=== PATIENT | female | born 1940 | race Caucasian/White ===

== ENCOUNTER → 2019-11-02 18:10 | Outpatient (CLI) | payer MEDICARE, SELFPAY ==
--- NOTE | ~2019-11-02 | MM_ITS ---
EXAMINATION: MM screening alejo BI w janet HISTORY: Screening mammogram TECHNIQUE: Craniocaudal and mediolateral oblique 3-D tomosynthesis images were obtained and synthetic 2-D images were generated. CAD analysis was submitted and interpreted. COMPARISON: 09/06/2018, 07/30/2017, 07/17/2016 bilateral digital screening mammogram examinations BREAST PARENCHYMAL COMPOSITION: There are scattered areas of fibroglandular density. FINDINGS: There is no evidence of suspicious mass, calcification, or architectural distortion to sugg est malignancy in either breast. There has been no suspicious interval change. IMPRESSION: 1. No mammographic evidence of malignancy. 2. Recommend routine screening mammography in one year. BI-RADS Category 1: Negative Reviewed, dictated and finalized at location A. D BONER
== END ==
PROVIDERS: PCP Family Medicine Adolescent Medicine; Visit Provider Family Medicine Adolescent Medicine
DX: Z12.31 Encounter for screening mammogram for malignant neoplasm of breast (principal)
CPT/HCPCS: 77063; 77067

== ENCOUNTER → 2020-12-24 11:40 | Outpatient (CLI) | payer MEDICARE, SELFPAY ==
--- NOTE | ~2020-12-24 | MM_ITS ---
EXAMINATION: MM screening alejo BI w janet HISTORY: Screening mammogram TECHNIQUE: Craniocaudal and mediolateral oblique 3-D tomosynthesis images were obtained and synthetic 2-D images were generated. CAD analysis was submitted and interpreted. COMPARISON: 11/02/2019, 09/06/2018, 07/30/2017 bilateral digital screening mammogram examinations BREAST PARENCHYMAL COMPOSITION: There are scattered areas of fibroglandular density. FINDINGS: There is no evidence of suspicious mass, calcification, or architectural distortion to sugg est malignancy in either breast. There has been no suspicious interval change. IMPRESSION: 1. No mammographic evidence of malignancy. 2. Recommend routine screening mammography in one year. BI-RADS Category 1: Negative Reviewed, dictated and finalized at location A.
== END ==
PROVIDERS: PCP Family Medicine Adolescent Medicine; Visit Provider Family Medicine Adolescent Medicine
DX: Z12.31 Encounter for screening mammogram for malignant neoplasm of breast (principal)
CPT/HCPCS: 77063; 77067

== ENCOUNTER 2021-01-20 12:01 | Emergency (ER) | payer MEDICARE, SELFPAY ==
--- NOTE | 2021-01-20 12:11 | ED.LOWEXIN ---
HPI - Extremity Injury (Lower) General Chief Complaint: Extremity Injury, Lower Stated Complaint: Left Leg Pain Time Seen by Provider: 01/20/21 12:11 Source: patient and RN notes reviewed Mode of arrival: ambulatory Limitations: no limitations History of Present Illness HPI Narrative: 80-year-old female presents to the [facility] with complaints of a wound to the lower left leg. States that she fell 4 weeks ago in her garage and did not seek treatment at that time. At that time the wound was small. states that over the last few days the area started to swell, turn red and drain yellow to reddish clear fluid. Unknown last tDap. Patient states that her concern if for infection and that the wound is not healing. Related Data Home Medications Medication Instructions Recorded Confirmed carvedilol 25 mg PO DAILY 01/20/21 01/20/21 furosemide 40 mg PO DAILY 01/20/21 01/20/21 gabapentin 300 mg PO DAILY 01/20/21 01/20/21 mirabegron [Myrbetriq] 25 mg PO DAILY 01/20/21 01/20/21 naproxen 500 mg PO DIRECTED 01/20/21 01/20/21 omeprazole 40 mg PO DAILY 01/20/21 01/20/21 Allergies Allergy/AdvReac Type Severity Reaction Status Date / Time No Known Allergies Allergy Unverified 03/03/19 08:25 Review of Systems Review of Systems: All systems reviewed & are unremarkable except as noted in HPI and below Constitutional: Constitutional: Reports no additional constitutional complaints, Denies chills and Denies fever(s) Cardiovascular: Cardiovascular: Reports no additional cardiovascular complaints and Denies chest pain Respiratory: Respiratory: Reports no additional respiratory complaints, Denies cough, Denies dyspnea and Denies wheezing Musculoskeletal: Musculoskeletal: Reports as per HPI Comments: lower leg pain with swelling Integumentary/Breasts: Skin/Breast: Reports as per HPI Comments: wound to the anterior left lower leg. Neurologic: Reports system reviewed and no additional complaints, except as documented Psychiatric: Psychiatric: Reports no additional psychiatric complaints PMFSH Comments At the time of my signature, I reviewed and agree with the nursing past medical, surgical, social, and family history. There is no relevant family history pertinent to the patient complaint. Exam Const: General: healthy appearing, no acute distress and alert Nutritional Appearance: well nourished Orientation/consciousness: patient oriented x3 Limitations: no limitations HENMT: Head: normal to inspection Neck: Neck: normal visual inspection Chest: Chest palpation & inspection: normal inspection of the chest Resp: Effort & Inspection: normal respiratory effort and no use of accessory muscles Auscultation: clear to auscultation bilaterally, no crackles, no rales, no rhonchi and no wheezes Cardio: Rate: regular rate Rhythm: regular rhythm Back/Spine/Pelvis: Back: no CVA tenderness Skin: Wounds: wounds noted ulceration left anterior lower leg drainage serosanguinous, open and with surrounding erythema (Not circumferential); not malodorous Neuro: General: patient oriented x3, moves all extremities and no focal motor deficits Speech: normal speech Gait exam (Neuro): Normal gait present Extrem: General: edema (Trace left lower distal to wound, not circumferential) Psych: Appearance: grossly normal and well kempt Mental Status: mental status grossly normal Affect: normal affect Attitude: cooperative Thought content: Yes Normal thought content present Course Vital Signs Vital signs: Vital Signs Temperature 96.8 F L 01/20/21 12:14 Pulse Rate 62 01/20/21 12:14 Respiratory Rate 20 01/20/21 12:14 Blood Pressure 157/86 H 01/20/21 12:14 Pulse Oximetry 95 01/20/21 12:14 Temperature 96.8 F L 01/20/21 12:14 Pulse Rate 62 01/20/21 12:14 Respiratory Rate 20 01/20/21 12:14 Blood Pressure 157/86 H 01/20/21 12:14 Pulse Oximetry 95 01/20/21 12:14 Reviewed MDM - Extremity Injury (Lower) MDM Narrati
[2021-01-20 12:14] VITALS: BP 157/86; PULSE 62; RESP 20; TEMP 36; O2SAT 95
[2021-01-20] MEDS: TETANUS,DIPHTHERIA,AC PERTUSSIS ADULT (0.5 ML) BOOSTRIX IM (12:40)
== END 2021-01-20 12:53 | disposition home or self-care (01) ==
PROVIDERS: Emergency Provider Nurse Practitioner; PCP Family Medicine Adolescent Medicine
DX: L03.116 Cellulitis of left lower limb (principal); S81.802A Unspecified open wound, left lower leg, initial encounter; W19.XXXA Unspecified fall, initial encounter; Z23 Encounter for immunization; E78.00 Pure hypercholesterolemia, unspecified; I10 Essential (primary) hypertension; K21.9 Gastro-esophageal reflux disease without esophagitis
CPT/HCPCS: 90471; 90715; 99213; G0463

== ENCOUNTER 2021-11-10 17:51 | Emergency (ER) | payer MEDICARE, SELFPAY ==
--- NOTE | ~2021-11-10 | XR_ITS ---
XR knee LT min 4V DATE: 11/10/2021 18:35 INDICATION: Fall. Left knee pain, swelling TECHNIQUE: 4 views including crosstable lateral COMPARISON: 01/25/2019 left knee FINDINGS: There is diffuse osteopenia. There is polyarticular osteoarthritis, particularly severe at the medial compartment with severe loss of joint space. There is periarticular spurring at all 3 compartments. There is prominent suprapatellar knee joint effusion.. There is a subtle transverse linear lucency overlying the mid to upper patella, extending to the pineda cular surface; nondisplaced patellar fracture is not excluded. Consider CT or MR evaluation. No other fracture or dislocation or any periosteal reaction or bone destruction is noted. IMPRESSION: Prominent suprapatellar knee joint effusion Osteopenia Tricompartment osteophytes, particular severe at the medial compartment Cannot exclude or confirm nondisplaced patellar fracture; consider CT or MR evaluation of the left kn ee Reviewed, dictated and finalized at location A. IMPRESSION: Prominent suprapatellar knee joint effusion Osteopenia Tricompartment osteophytes, particular severe at the medial compartment Cannot exclude or confirm nondisplaced patellar fracture; consider CT or MR chuck luation of the left knee
--- NOTE | ~2021-11-10 | XR_ITS ---
XR hand RT min 3V DATE: 11/10/2021 18:36 INDICATION: Fall. Right hand pain, bruising of third digit TECHNIQUE: 3 views COMPARISON: None FINDINGS: There is a minimally displaced fracture of the base of the proximal phalanx of the fifth di git. There is severe polyarticular osteoarthritis, particularly severe at the triscaphe, first carpometaca rpal and multiple interphalangeal joints. Diffuse osteopenia. IMPRESSION: Minimally displaced fracture of base of proximal phalanx of fifth digit Severe articular osteoarthritis Osteopenia Reviewed, dictated and finalized at location A. IMPRESSION: Minimally displaced fracture of base of proximal phalanx of fifth d igit Severe articular osteoarthritis Osteopenia
[2021-11-10 18:06] VITALS: BP 160/105; PULSE 72; RESP 18; TEMP 37.2; O2SAT 95
--- NOTE | 2021-11-10 18:14 | ED.GENADULT ---
HPI - General Adult General Chief complaint: Fall Stated complaint: Right hand and Left Knee Pain Time Seen by Provider: 11/10/21 18:14 Source: patient Mode of arrival: ambulatory Limitations: no limitations History of Present Illness HPI narrative: 81-year-old female presented for complaint of pain to right hand and left knee after fall about 4 hours ago. She did not hit her head or lose consciousness. She landed on the left knee and use her right hand to break her fall. Endorses the right hand started to turn black and blue at the pinky finger and now has swelling with pain and limited range of motion. Pain to left knee, worse when standing and walking. Denies numbness, tingling, weakness of extremities. She has taken Tylenol about 3 hours ago. Related Data Home Medications Medication Instructions Recorded Confirmed carvedilol 25 mg PO DAILY 01/20/21 11/10/21 furosemide 40 mg PO DAILY 01/20/21 11/10/21 gabapentin 300 mg PO DAILY 01/20/21 11/10/21 mirabegron [Myrbetriq] 25 mg PO DAILY 01/20/21 11/10/21 naproxen 500 mg PO DIRECTED 01/20/21 11/10/21 omeprazole 40 mg PO DAILY 01/20/21 11/10/21 Allergies Allergy/AdvReac Type Severity Reaction Status Date / Time No Known Allergies Allergy Verified 11/10/21 17:54 Review of Systems Review of Systems: CONSTITUTIONAL: Denies body aches, fever, chills EYES: Denies visual changes ENT: Denies rhinorrhea, congestion CARDIOVASCULAR: Denies chest pain, palpitations, or edema. RESPIRATORY: Denies cough or dyspnea. GASTROINTESTINAL: Denies abdominal pain, nausea, vomiting, or diarrhea. SKIN: Denies rash, itching, or wounds. MUSCULOSKELETAL: reports right hand pain and left knee pain NEUROLOGIC: Denies headache, numbness, tingling, or weakness. PSYCH: Denies depression or anxiety. All systems reviewed & are unremarkable except as noted in HPI and below PMFSH Comments At time of signature, I have reviewed and agree with nursing past medical, surgical, social and family history unless otherwise noted. Please see nursing chart for further information. There is no relevant family history pertinent to the presenting complaint Exam Narrative: GENERAL: Well-appearing, and in no acute distress. HEAD: Normocephalic, atraumatic. EYES: PERRLA, conjunctivae clear NECK: Supple. CHEST: Speaks in full sentences. No respiratory distress. HEART: Regular rate and rhythm. Normal and equal peripheral pulses. EXTREMITIES: JAGDISH has normal strength, sensation, normal range of motion with flexion/extension/rotation, but endorses pain with extension of knee. minimal edema and ecchymosis to anterior knee, No point tenderness, No open wounds, skin tenting, or obvious deformity; right hand has normal strength, sensation, Limited normal range of motion with flexion of hand, cannot make fist with 5th digit due to pain/swelling; moderate swelling and ecchymosis to palmar surface at 5th metacarpal, tenderness between MCP and PIP; abrasion approx 1cm diameter to palmar surface MCP. appears to have chronic deformity at 5th digit. skin warm, dry, pink. Capillary refill less than 3 seconds. SKIN: Warm, dry, no rash. NEURO: Alert and oriented x3. PSYCH: Normal mood and affect Course Course Emergency Course: Patient is aware of diagnosis, understands and agrees to treatment plan. Anticipatory guidance given. Patient agrees to follow-up as directed and is aware of reasons to seek care at the emergency department. Portions of this record may have been created with voice recognition software Level of Care: Express Care Visit Vital Signs Vital signs: Vital Signs Temperature 98.9 F 11/10/21 18:06 Pulse Rate 72 11/10/21 18:06 Respiratory Rate 18 11/10/21 18:06 Blood Pressure 160/105 H 11/10/21 18:06 Pulse Oximetry 95 11/10/21 18:06 Temperature 98.9 F 11/10/21 18:06 Pulse Rate 72 11/10/21 18:06 Respiratory Rate 18 11/10/21 18:06 Blood Pressure 160/105 H 11/10/21 18
== END 2021-11-10 19:20 | disposition home or self-care (01) ==
PROVIDERS: Emergency Provider Nurse Practitioner Family; PCP Family Medicine Adolescent Medicine
DX: S62.616A Displaced fracture of proximal phalanx of right little finger, initial encounter for closed fracture (principal); W19.XXXA Unspecified fall, initial encounter; M25.562 Pain in left knee; E78.00 Pure hypercholesterolemia, unspecified; I10 Essential (primary) hypertension; K21.9 Gastro-esophageal reflux disease without esophagitis; Z98.42 Cataract extraction status, left eye; Z98.41 Cataract extraction status, right eye; Z96.1 Presence of intraocular lens
CPT/HCPCS: 29130; 73130; 73564; 99214; G0463; L1830

== ENCOUNTER → 2022-02-10 09:58 | Outpatient (CLI) | payer MEDICARE, SELFPAY ==
--- NOTE | ~2022-02-10 | MM_ITS ---
EXAMINATION: MM screening alejo BI w janet HISTORY: Screening TECHNIQUE: Craniocaudal and mediolateral oblique 3-D tomosynthesis images were obtained and synthetic 2-D images were generated. CAD analysis was submitted and interpreted. COMPARISON: Comparison to multiple prior studies sequentially, with oldest reviewed study dated 06/01. BREAST PARENCHYMAL COMPOSITION: Breast composed of scattered areas of fibroglandular density FINDINGS: There is no evidence of suspicious mass, calcification, or architectural distortion to sugg est malignancy in either breast. There has been no suspicious interval change. IMPRESSION: 1. No mammographic evidence of malignancy. 2. Recommend routine screening mammography in one year. BI-RADS Category 1: Negative Reviewed, dictated and finalized at location A.
== END ==
PROVIDERS: PCP Family Medicine Adolescent Medicine; Visit Provider Family Medicine Adolescent Medicine
DX: Z12.31 Encounter for screening mammogram for malignant neoplasm of breast (principal)
CPT/HCPCS: 77063; 77067

== ENCOUNTER → 2022-06-05 10:49 | Outpatient (CLI) | payer MEDICARE, SELFPAY ==
--- NOTE | ~2022-06-05 | XR_ITS ---
EXAMINATION: XR chest 2V DATE: 06/05/2022 11:00 INDICATION: Shortness of breath and dizziness TECHNIQUE: frontal and lateral views of the chest were obtained. COMPARISON: Chest radiograph dated 11/21/2003 FINDINGS: The lungs remain clear with no focal airspace opacities, pulmonary edema, pleural effusion or pneumot horax. Heart size is normal. Moderate sized hiatal hernia. IMPRESSION: 1. No acute cardiopulmonary disease. 2. Moderate-sized hiatal hernia. Reviewed, dictated and finalized at location A.
== END ==
PROVIDERS: PCP Family Medicine Adolescent Medicine; Visit Provider Family Medicine Adolescent Medicine
DX: R06.09 Other forms of dyspnea (principal); R06.02 Shortness of breath; K44.9 Diaphragmatic hernia without obstruction or gangrene
CPT/HCPCS: 71046

== ENCOUNTER → 2023-02-08 09:54 | Outpatient (CLI) | payer MEDICARE, SELFPAY ==
--- NOTE | ~2023-02-08 | CT_ITS ---
EXAMINATION: CT abdomen pelvis w con INDICATION: Left lower quadrant pain TECHNIQUE: Computed tomographic images of the abdomen and pelvis were obtained after the administrati on of 100 cc of Omnipaque 350 intravenous contrast. The dose-length product (DLP) was 908.69 mGy-cm. Automated exposure control and iterative reconstruction technique were employed. COMPARISON: None available FINDINGS: Minimal dependent atelectasis is present in the lung bases. The heart size is normal. There is a moderate-sized sliding hiatal hernia. The gallbladder is surgically absent. Punctate calcificat ions in an otherwise normal spleen likely represent healed granulomatous disease. The liver, pancreas , and adrenal glands are normal. The kidneys are unremarkable. No pathologically enlarged abdominal o r pelvic lymph nodes are identified. No free intraperitoneal gas or evidence of bowel obstruction. Th ere is a left lower quadrant ventral hernia containing a short segment of the nonobstructed descendin g colon. There is moderate lumbar spondylosis. There is protrusion of pelvic fat below the pubococcyg eal line, consistent with pelvic floor dysfunction. IMPRESSION: 1. Left lower quadrant ventral hernia containing a short segment of nonobstructed descending colon. Reviewed, dictated and finalized at location A. IMPRESSION: 1. Left lower quadrant ventral hernia containing a short segment of nonobstruct ed descending colon.
[2023-02-08 10:13] LABS: Estimated Glomerular Filt Rate 60
== END ==
PROVIDERS: PCP Family Medicine Adolescent Medicine; Visit Provider Nurse Practitioner Family
DX: R10.32 Left lower quadrant pain (principal); D64.9 Anemia, unspecified; G62.9 Polyneuropathy, unspecified; I10 Essential (primary) hypertension; K21.9 Gastro-esophageal reflux disease without esophagitis; M85.80 Other specified disorders of bone density and structure, unspecified site; K43.9 Ventral hernia without obstruction or gangrene
CPT/HCPCS: 74177; Q9967

== ENCOUNTER 2023-03-15 09:00 | Outpatient (RCR) | payer MEDICARE, SELFPAY ==
--- NOTE | 2023-01-19 11:00 | OPREHPOC ---
Outpatient Therapy Plan of Care This is a Multidisciplinary Plan of Care that may contain components documented by all disciplines (PT, OT, and ST.) PT Problem 1 PT Problem #1 Knowledge Deficit PT Goal 1 Goal Independent with HEP Target Visit 6 PT Problem 2 PT Problem #2 Impaired Balance PT Goal 1 Goal Increase Tinetti score to above 24/28 Target Visit 6 PT Goal 2 Goal Able to stand for 30 seconds without UE support and eyes closed Target Visit 6 PT Problem 3 PT Problem #3 Impaired Strength PT Goal 1 Goal YAMINI LE grossly 4+/5 Target Visit 6
--- NOTE | 2023-01-19 11:01 | PTOPEVAL1 ---
Assessment and note entered by Franklin Addison, PT Evaluation Information Assessment Status Evaluation Diagnosis repeated falls, polyneuropathy Subjective Information Patient reports she is very afraid of falls, having her last one in the 2021 which resulted in a broken finger. She is using a cane. She has neuropathy up to her mid-shins. Reports always uses the cane outside the house, but in the house she furniture surfs. Also reports she is unable to get up from chairs without armrests and toilets without grab bars. Reports she was supposed to get a R knee replacement 8-9 years ago , but refuses to do surgery as she is the only caregiver her son has and she cannot be down for any period of time. Reported Pain Level Pain Score Mild Pain: García Maya Additional Pain Score Comments Patient reports minor pain throughout her entire body. Assessment PT Clinical Summary Jocelyn is an 82 year old female coming into the clinic with a diagnosis of polyneuropathy and history of falls. Patient has decreased strength and bad knees both worse on the R side along poor proprioception and balance. Recommended using a walker instead of cane and she states once she uses a walker she will never get off it. Physical therapy will work on general lower extremity strengthening and balance activities. Plan of Care Interventions Electrical Stimulation,Gait Training,Hot Pack/Cold Pack,Manual Therapy,Neuro Re-education,Patient/ Caregiver Education,Therapeutic Activities, Therapeutic Exercise,Ultrasound Other Interventions cupping, taping, IASTM PT Services Indicated Yes Treatment Frequency and 1-2x/wk for 4 weeks Duration These treatments will address the objective and functional deficits as defined above. The patient will be advanced safely and appropriately in order for the patient to progress towards his/her prior level of function. Additional exercises will be introduced and as well as a comprehensive home exercise program upon discharge, if needed, ?to ensure carryover of functional gains achieved in the clinic. This treatment plan has been reviewed and agreement upon by the patient.
--- NOTE | 2023-02-15 14:24 | PTOPPROG ---
Assessment and note entered by Franklin Addison, PT Evaluation Information Assessment Status Progress Diagnosis repeated falls neuropathy Subjective Information Patient reports no falls since starting therapy and feeling stronger. Patient has improved feeling with less pain in her toes secondary to switching from Gabapentin to Lyrica. Patient feels like she could get stronger and improve her balance more. Assessment PT Clinical Summary Jocelyn is an 82 year old female coming into the clinic with a diagnosis of repeated falls and polyneuropathy. She was evaluated on 01/18/23 and has attended 9 sessions so far. She has met one of her balance goals and increased her Tinetti score from 17 to 21/28 going from high risk of falls to moderate risk. Patient also improved strength in her hips and knees, but still needs to work on her ankles. Recommend continued therapy to work on improving strength and balance to prevent further falls that may cause more severe injury. Plan of Care Interventions Electrical Stimulation,Gait Training,Hot Pack/Cold Pack,Manual Therapy,Neuro Re-education,Patient/ Caregiver Education,Therapeutic Activities, Therapeutic Exercise,Ultrasound Other Interventions cupping, taping, IASTM PT Services Indicated Yes Treatment Frequency and 1-2x/wk for 4 weeks Duration These treatments will address the objective and functional deficits as defined above. The patient will be advanced safely and appropriately in order for the patient to progress towards his/her prior level of function. Additional exercises will be introduced and as well as a comprehensive home exercise program upon discharge, if needed, ?to ensure carryover of functional gains achieved in the clinic. This treatment plan has been reviewed and agreement upon by the patient.
--- NOTE | 2023-02-25 09:05 | PCPTNOTE ---
Pt cancelled her appt today due to illness.
--- NOTE | 2023-03-03 08:43 | PCPTNOTE ---
Patient called & cancelled scheduled appointment this date due to not feeling well.
--- NOTE | 2023-03-15 09:51 | PTOPDC ---
Assessment and note entered by Franklin Addison, PT Evaluation Information Assessment Status Discharge Diagnosis Repeated falls, polyneuropathy. Subjective Information Patient reports she is now more aware of what she does when moving around that decreases her chances of falls. No falls since last reassessment. Reports feeling stronger and faithfully doing her exercises. Also reports she has gotten bills from her insurance companies and they are not going to cover physical therapy. Reported Pain Level Pain Score 4: Self Report Assessment PT Clinical Summary Jocelyn is an 82 year old female coming into the clinic with a diagnosis of repeated falls and polyneuropathy. She was evaluated on 01/18/23 and has attended 14 sessions. She has met all goals besides on her Tinetti scoring a 23/28 instead. Patient feels confident with her HEP and will continue to do at home, but secondary to financial reasons would like to stop skilled physical therapy. Plan of Care PT Services Indicated No
== END 2023-03-16 08:30 | disposition home or self-care (01) ==
LOC: ANHPT 09:00
PROVIDERS: PCP Family Medicine Adolescent Medicine; Visit Provider Nurse Practitioner Family
DX: R29.6 Repeated falls (principal); M85.80 Other specified disorders of bone density and structure, unspecified site; I10 Essential (primary) hypertension; D64.9 Anemia, unspecified; G62.9 Polyneuropathy, unspecified; K21.9 Gastro-esophageal reflux disease without esophagitis
CPT/HCPCS: 97110; 97161; 97530

== ENCOUNTER 2023-11-28 10:31 | Emergency (ER) | payer MEDICARE, SELFPAY ==
--- NOTE | ~2023-11-28 | XR_ITS ---
XR knee RT min 4V DATE: 11/28/2023 11:54 INDICATION: Right knee pain anteriorly following fall TECHNIQUE: 4 views including crosstable lateral COMPARISON: None FINDINGS: There is osteopenia. 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 Subtle chondrocalcinosis is noted at t he medial and lateral compartments. No fracture or dislocation is evident. Small suprapatellar knee joint effusion is suggested. No fracture or dislocation, periosteal reaction or bone destruction. 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 IMPRESSION: Tricompartment osteoarthritic arthritis, most prominent at the medi al compartment Subtle chondrocalcinosis Small knee joint effusion is suggested
--- NOTE | 2023-11-28 11:44 | ED.WOUNDLAC ---
HPI - Wound/Laceration General Chief Complaint: Wound/Laceration Stated Complaint: fall-right arm skin tear Time Seen by Provider: 11/28/23 11:12 Source: patient Mode of arrival: ambulatory Limitations: no limitations History of Present Illness HPI narrative: This is a 83 year old female that presents to the ER after a fall today with skin tear. Reports she tripped over a dog and fell. Reports hitting her arm on a piano. Reports a skin tear to the area. She is up to date on tetanus vaccination. She also reports right knee pain. She has been able to ambulate. She does not believe she hit her head. She did not lose consciousness. No other injuries or focal areas of pain. Denies decreased ROM or numbness. Related Data Allergies Allergy/AdvReac Type Severity Reaction Status Date / Time levofloxacin [From Levaquin] AdvReac Intermediate myalgia Verified 11/28/23 10:32 [id number] Reductase AdvReac Intermediate Muscle Pain Verified 11/28/23 10:32 Inhibitor alendronate sodium AdvReac Unknown Rash Verified 11/28/23 10:32 [From Fosamax] calcitonin [From Miacalcin] AdvReac Unknown Unknown Verified 11/28/23 10:32 Review of Systems Review of Systems: CONSTITUTIONAL: Denies fever SKIN: Reports skin tear MUSCULOSKELETAL: Reports joint pain, and myalgia. All systems reviewed & are unremarkable except as noted in HPI and below PMFSH Past Medical History Medical History Arthritis Diarrhea Dyspnea Elevated WBCs GERD (gastroesophageal reflux disease) Hematochezia Hypertension Myalgia Proximal phalanx fracture of finger Surgical History Surgical History History of carpal tunnel release (~1969) History of lumpectomy of right breast Hx of cholecystectomy (~1972) Hx of hysterectomy (~1971) Hx of knee surgery (~2002) Family History Family History Father Lung cancer Mother Brain cancer Sibling FH: kidney cancer Other Arthritis Diabetes mellitus History of kidney cancer Hypertension Lung disease Neuropathy Social History Social History Smoking packs per day: 3 Smoking cigarettes per day: 60.0 Years smoked: 30 Smoking pack-years: 90.00 Smoking status: Former smoker Substance use: never Lack of Transportation: No Lack of Food: Never True Current Housing: I Have Housing Concerned About Future Housing: No Difficulty Paying Gas/Electric Bills: No Difficulty Paying for Meds: No Currently Unemployed: No Education: High School Diploma/GED Difficulty w/ Childcare or Family Care: No Occupation/Education: retired Gender identity (if verbalized by the patient): Female Exam Narrative: GENERAL: Elderly, well-nourished, and in no acute distress. HEAD: Normocephalic, atraumatic. EYES: EOMI. CHEST: No respiratory distress. HEART: Regular rate EXTREMITIES: Normal range of motion. No edema or obvious deformity. Normal DP and radial pulses. Normal sensation. Large skin tear to the right forearm SKIN: Warm, dry, no rash. NEURO: No focal deficits. Alert and oriented x3. PSYCH: Normal mood and affect Course Course Emergency Course: Patient updated on her workup and agrees with plan of care Vital Signs Vital signs: Vital Signs Temperature 97.7 F 11/28/23 11:58 Pulse Rate 64 11/28/23 11:58 Respiratory Rate 15 11/28/23 11:58 Blood Pressure 191/104 H 11/28/23 11:58 Pulse Oximetry 98 11/28/23 11:58 Temperature 97.7 F 11/28/23 11:58 Pulse Rate 64 11/28/23 11:58 Respiratory Rate 15 11/28/23 11:58 Blood Pressure 191/104 H 11/28/23 11:58 Pulse Oximetry 98 11/28/23 11:58 Procedures Laceration Laceration 1: Date: 11/28/23 Time: 12:04 Site: upper extremity Side (If applicable):
[2023-11-28 11:58] VITALS: BP 191/104; PULSE 64; RESP 15; TEMP 36.5; O2SAT 98
== END 2023-11-28 12:39 | disposition home or self-care (01) ==
PROVIDERS: Emergency Provider Physician Assistant; PCP Family Medicine Adolescent Medicine
DX: S41.111A Laceration without foreign body of right upper arm, initial encounter (principal); M25.561 Pain in right knee; W01.0XXA Fall on same level from slipping, tripping and stumbling without subsequent striking against object, initial encounter; K21.9 Gastro-esophageal reflux disease without esophagitis; I10 Essential (primary) hypertension; Z87.891 Personal history of nicotine dependence
CPT/HCPCS: 73564; 99283

== ENCOUNTER 2024-09-06 11:26 | Outpatient (CLI) | payer MEDICARE, SELFPAY ==
--- NOTE | ~2024-09-06 | XR_ITS ---
XR tibia fibula LT 2V Ordering provider: Shobha Bishop APRN History: . M79.042 - Pain in left lower leg . Comparison: None. FINDINGS: BONES: No acute fracture or dislocation. JOINT SPACES: Normal. SOFT TISSUES: Normal. IMPRESSION: No acute osseous abnormality left leg. Reviewed, dictated and finalized at location A. ETING TRAFFIC COORDINATOR
== END 2024-09-06 11:27 | disposition home or self-care (01) ==
LOC: MICIMG 11:27
PROVIDERS: PCP Family Medicine Adolescent Medicine; Visit Provider Nurse Practitioner Family
DX: M79.662 Pain in left lower leg (principal)
CPT/HCPCS: 73590

== ENCOUNTER 2024-12-11 07:12 | Outpatient (RCR) | payer MEDICARE, SELFPAY | END 2024-12-24 23:59 | disposition home or self-care (01) | LOC: ANHWOC 07:12 | PROVIDERS: PCP Family Medicine Adolescent Medicine; Visit Provider Nurse Practitioner Family | DX: I73.9 Peripheral vascular disease, unspecified (principal); L97.909 Non-pressure chronic ulcer of unspecified part of unspecified lower leg with unspecified severity; Z48.00 Encounter for change or removal of nonsurgical wound dressing | CPT/HCPCS: 99213; 99214; A9270; G0463 ==

== ENCOUNTER 2025-03-12 07:09 | Outpatient (RCR) | payer MEDICARE, SELFPAY | END 2025-04-01 23:59 | disposition home or self-care (01) | LOC: ANHWOC 07:09 | PROVIDERS: PCP Family Medicine Adolescent Medicine; Visit Provider Nurse Practitioner Family | DX: Z48.00 Encounter for change or removal of nonsurgical wound dressing (principal); I73.9 Peripheral vascular disease, unspecified; L97.909 Non-pressure chronic ulcer of unspecified part of unspecified lower leg with unspecified severity | CPT/HCPCS: 99213; A9270; G0463 ==

== ENCOUNTER 2025-06-04 07:17 | Outpatient (RCR) | payer MEDICARE, SELFPAY | END 2025-07-08 23:59 | disposition home or self-care (01) | LOC: ANHWOC 07:17 | PROVIDERS: PCP Family Medicine Adolescent Medicine; Visit Provider Nurse Practitioner Family | DX: I73.9 Peripheral vascular disease, unspecified (principal); L97.929 Non-pressure chronic ulcer of unspecified part of left lower leg with unspecified severity; Z48.00 Encounter for change or removal of nonsurgical wound dressing | CPT/HCPCS: 99212; 99213; 99214; G0463 ==

== ENCOUNTER 2025-06-27 10:18 | Outpatient (CLI) | payer MEDICARE, SELFPAY ==
--- NOTE | ~2025-06-27 | CT_ITS ---
EXAMINATION: CT abdomen pelvis w con DATE: 06/27/2025 10:46 INDICATION: Left lower quadrant abdominal swelling. TECHNIQUE: Computed tomography (CT) of the abdomen and pelvis was performed with 100 mL Omnipaque 350 intravenous contrast. Automated exposure control and iterative reconstruction technique were employed. The dose-length product was 918.01 mGy-cm. COMPARISON: CT abdomen and pelvis 02/08/2023 FINDINGS: The visualized portions of the lung bases demonstrate mild atelectasis. No pleural effusion. There is a large sliding hiatal hernia. The heart size is normal. No pericardial effusion. The liver and spleen are normal. The gallbladder is absent. The pancreas and adrenal glands are normal. There is cortical thinning of the kidneys. There is diverticulosis of the colon without evidence of diverticulitis. There is a left inguinal hernia containing nonobstructed sigmoid colon. There is a right inguinal hernia containing nonobstructed small bowel. There are no dilated loops of bowel. The appendix is not visualized. There are no pathologically enlarged lymph nodes. There is no free intraperitoneal fluid. There is severe thoracic and lumbar spondylosis. IMPRESSION: 1. Left inguinal hernia containing nonobstructed sigmoid colon. 2. Right inguinal hernia containing nonobstructed small bowel. 3. Large sliding hiatal hernia. Reviewed, dictated and finalized at location E.
[2025-06-27 10:33] LABS: Estimated Glomerular Filt Rate 60
== END 2025-06-27 10:19 | disposition home or self-care (01) ==
LOC: MICIMG 10:18
PROVIDERS: PCP Nurse Practitioner Family; Visit Provider Nurse Practitioner Family
DX: K44.9 Diaphragmatic hernia without obstruction or gangrene (principal); K40.20 Bilateral inguinal hernia, without obstruction or gangrene, not specified as recurrent
CPT/HCPCS: 74177; Q9967